=== PATIENT | female | born 1980 | race Caucasian/White ===

== ENCOUNTER → 2018-04-03 01:37 | Outpatient (CLI) | payer SELFPAY ==
--- NOTE | 2018-04-03 12:39 | DI.REPORT_ITS ---
SYMPTOMS/DIAGNOSIS: DATING, Z32.01 POSITIVE URINE TEST TRANSVAGINAL OB ULTRASOUND: Many abnormalities cannot be diagnosed. A normal exam does not exclude a congenital anomaly. Radiology No. [id number] LMP: 02/06/18 Exam Date: 04/03/18 [facility] wks days on EDC ([facility]) Confirmed: HISTORY: ---- PREDICTED GESTATIONAL AGE NUMBER 8 weeks with a range of 7 weeks to 9 weeks. 1 Determined by___1STUS__X_LMP___HISTORY PLACENTA PRESENTATION Grade Cephalic___ Anterior___Posterior___ Breech____ Right Left Transverse(head right___ Fundal___Low-lying___Previa___ Transverse(head left___ Varying BIOMETRY AMNIOTIC FLUID BPD: mm weeks Normal HC: mm weeks Oligo Polyhydramnios AC: mm weeks FL: mm weeks AMNIOTIC FLUID INDEX >26 WK CRL: mm weeks Cisterna Magna: mm CI: RUQ: LUQ Cerebellum: cm EFW: grams Percentile RLQ: LLQ Total: cms Composite AGE= wks EDC by US BIOPHYSICAL PROFILE ANATOMY IDENTIFIED SCORE 0/2 Heart: 4-Chamber___Rate:BPM 163 LVOT: RVOT: Amniotic Fluid(>2cms)____ Stomach: Kidneys: Respirations (>30 secs) Bladder: Post. Fossa: Body Flex/Extension 3 vessel cord: Ventricles: cord insertion: Lips:____ Extremity Flex/Extension spinal morphology: Nose: Total Score= Palate: NS=not seen COMMENTS: A viable intrauterine garcia is demonstrated. The yolk sac is identified. There is a question regarding a tiny subchorionic hemorrhage. The right ovary is normal. The left ovary was not seen. These findings are duly recorded on the obstetrical ultrasound worksheet.
== END ==
PROVIDERS: Visit Provider Nurse Practitioner Women's Health
DX: Z32.01 Encounter for pregnancy test, result positive (principal); Z34.81 Encounter for supervision of other normal pregnancy, first trimester
CPT/HCPCS: 76817

== ENCOUNTER 2018-04-08 11:32 | Outpatient (CLI) | payer MEDICAID, SELFPAY ==
[2018-04-08 12:40] LABS: Abs Immature Grans 0.03 k/cumm (0.0-0.09); Absolute Basophil Count 0.03 k/cumm (0.0-0.2); Absolute Lymphocyte Count 2.93 k/cumm (1.2-3.4); Absolute Monocyte Count 0.97 k/cumm (0.11-0.7); Basophils % 0.2; Eosinophils % 1.5; HCT 40.5 % (36.0-46.0); HGB 13.9 g/dL (12.0-15.5); Immature Grans % 0.2; Lymphocytes % 22.4; Mean Corp. HGB Concentration 34.3 g/dL (32.0-36.0); Mean Corpuscular Hemoglobin 31.4 pg (27.0-33.0); Mean Corpuscular Volume 91.6 fL (80-95); Mean Platelet Volume 10.1 fL (8.0-11.0); Monocytes % 7.4; Neutrophils % 68.3; Platelet Count 313 x1000/uL (130-400); RBC 4.42 m/cumm (4.00-5.20); RBC Distribution Width 12.3 % (11.7-14.6); White Blood Cell Count 13.09 k/cumm (4.4-10.8)
[2018-04-08 12:50] LABS: Absolute Neutrophil Count 8.94 k/cumm (1.2-6.7)
[2018-04-08 13:25] LABS: TSH (W/Ref FT4) 0.91 uIU/mL (0.358-3.74)
[2018-04-09 10:26] LABS: HIV-1/2 Ag & Ab Screen Negative (NEGAT)
[2018-04-09 10:34] LABS: Hepatitis B Surface Ag Negative (NEGAT); Hepatitis C Ab w Rflx HCV PCR Negative (NEGAT)
[2018-04-09 12:26] LABS: Rubella IgG Ab (UVM) Positive; Syphilis Serology (RPR) Negative (Negative)
== END 2018-04-08 11:52 ==
PROVIDERS: Visit Provider Advanced Practice Midwife
DX: Z34.91 Encounter for supervision of normal pregnancy, unspecified, first trimester (principal)
CPT/HCPCS: 36415; 80055; 86850; 86900; 86901; 84443

== ENCOUNTER 2018-04-08 14:12 | Outpatient (REF) | payer MEDICAID, SELFPAY ==
[2018-04-08 16:42] LABS: *AMPHETAMINES SCREEN URINE Negative (Negative); *BARBITURATES SCREEN URINE Negative (Negative); *BENZODIAZEPINES SCREEN URINE Negative (Negative); Cannabinoids THC Negative (Negative); Cocaine Screen,Urine Negative (Negative); METHADONE URINE SCREEN Negative (Negative); OPIATES URINE SCREEN Negative (Negative)
[2018-04-08 16:48] LABS: Tricyclic Antidepressants Negative (Negative)
[2018-04-10 13:21] LABS: Chlamydia Result Negative; GC Result Negative; Specimen Description CERVICAL
[2018-04-12 10:25] LABS: Buprenorphine Negative; Norbuprenorphine Negative
== END 2018-04-08 14:32 ==
LOC: LBN 14:12
PROVIDERS: Visit Provider Advanced Practice Midwife
DX: Z34.91 Encounter for supervision of normal pregnancy, unspecified, first trimester (principal); Z11.3 Encounter for screening for infections with a predominantly sexual mode of transmission
CPT/HCPCS: 80307; 87491; 87591; 87086; 87480; 87510; 87660

== ENCOUNTER 2018-05-09 12:47 | Outpatient (REF) | payer MEDICAID, SELFPAY | END 2018-05-09 13:07 | LOC: LBN 12:47 | PROVIDERS: Visit Provider Advanced Practice Midwife | DX: Z34.91 Encounter for supervision of normal pregnancy, unspecified, first trimester (principal) | CPT/HCPCS: 87077; 87086; 87186 ==

== ENCOUNTER 2018-07-04 18:43 | Outpatient (REF) | payer MEDICAID, SELFPAY | END 2018-07-04 19:03 | LOC: LBN 18:43 | PROVIDERS: Visit Provider Nurse Practitioner | DX: Z34.92 Encounter for supervision of normal pregnancy, unspecified, second trimester (principal) | CPT/HCPCS: 87086 ==

== ENCOUNTER 2018-08-22 09:57 | Outpatient (CLI) | payer MEDICAID, SELFPAY ==
[2018-08-22 10:20] LABS: HCT 37.6 % (36.0-46.0); HGB 12.7 g/dL (12.0-15.5); Mean Corp. HGB Concentration 33.8 g/dL (32.0-36.0); Mean Corpuscular Hemoglobin 31.8 pg (27.0-33.0); Mean Platelet Volume 9.2 fL (8.0-11.0); Platelet Count 268 x1000/uL (130-400); RBC Distribution Width 12.9 % (11.7-14.6); White Blood Cell Count 11.55 k/cumm (4.4-10.8)
[2018-08-22 10:43] LABS: Glucose,1 Hr (Glucola) 67 mg/dL (80-140)
== END 2018-08-22 10:17 ==
PROVIDERS: Visit Provider Advanced Practice Midwife
DX: Z34.93 Encounter for supervision of normal pregnancy, unspecified, third trimester (principal)
CPT/HCPCS: 36415; 82950; 85027

== ENCOUNTER 2018-10-13 14:18 | Outpatient (REF) | payer MEDICAID, SELFPAY | END 2018-10-13 14:38 | LOC: LBN 14:18 | PROVIDERS: Visit Provider Obstetrics & Gynecology | DX: Z34.93 Encounter for supervision of normal pregnancy, unspecified, third trimester (principal); Z36.85 Encounter for antenatal screening for Streptococcus B | CPT/HCPCS: 87081 ==

== ENCOUNTER 2018-10-21 01:52 | Inpatient (IN) | payer MEDICAID, SELFPAY ==
[2018-10-21 03:59] LABS: ROM Plus Positive
[2018-10-21 04:30] LABS: HGB 13.2 g/dL (12.0-15.5); Mean Corp. HGB Concentration 34.7 g/dL (32.0-36.0); Mean Corpuscular Hemoglobin 31.8 pg (27.0-33.0); Mean Corpuscular Volume 91.6 fL (80-95); Mean Platelet Volume 9.7 fL (8.0-11.0); Platelet Count 249 x1000/uL (130-400); RBC 4.15 m/cumm (4.00-5.20); White Blood Cell Count 14.21 k/cumm (4.4-10.8)
--- NOTE | 2018-10-21 04:40 | HPE_ITS ---
Assessment and Plan (1) History of section, low transverse: Current visit: Yes Status: Acute Plan to proceed with repeat section at 36 weeks. The patient has been counseled on the risks related to surgery including hemorrhage, infection and injury to other organs such as bowel and bladder. We discussed the risks related to prematurity of the and in particular that of the potential need for respiratory support. We discussed the intended irreversibility of tubal sterilization. All questions were answered to the patient's satisfaction and consent was obtained. (2) premature rupture of membranes (PPROM) with onset of labor within 24 hours of rupture in third trimester, antepartum: Current visit: Yes Status: Acute (3) Request for sterilization: Current visit: Yes Status: Acute History of Present Illness Chief Complaint: PPROM 36.5 weeks. Narrative: 38year old @ 36.5 weeks presents with SROM and early labor. Her obstetrical history is significant for two prior sections and she declines a trial of labor. She did have preeclampsia in a prior . Her obstetrical course this has otherwise been uncomplicated. In addition the patient wishes to undergo permanent sterilization as she desires no further childbearing. PFSH Medical History Elderly multigravida in first trimester (Acute) Asthma (Chronic) Frequent UTI (Chronic) Osteopenia (Chronic) Surgical History Augmentation mammoplasty (Resolved) section (Resolved 07/18/07) section (Resolved 04/07/09) Reduction mammoplasty (Resolved) Family History Grandfather Heart disease Myocardial infarction Grandfather Heart disease Myocardial infarction Stroke Social History Smoking/Tobacco Use Status: Never Drug use: Never Substance use type: does not use Do you feel safe in your relationship?: Yes History History 3 Para 2 Hx # Term Pregnancies 2 Multiple births 1 Hx # Pregnancies 0 Ectopic pregnancies 0 AB induced 0 Hx Number of Living Children 3 AB spontaneous 0 Past Pregnancies Del. Date GA/Weeks # Outcome Route Wgt Sex Labor Lgth Anesthesia Location Prov Complic 07/18/07 38 No Successful 6 lb 1 oz Male 26 hrs iol for p/e on mgso4 after 26 hrs w/o sig. progress therefore did 1` [facility] 04/07/09 37 Yes Successful 5 lb 10 oz Female cuong c/s [facility] 04/07/09 37 Yes Successful 4 lb 15 oz Female repeat c/s [facility] Delivery Date: 04/07/09 On 08/08/18 @ 10:57 NEDA WALDRON 2nd twin Delivery Date: 04/07/09 On 08/08/18 @ 10:55 NEDA WALDRON twin gestation w/o complications Delivery Date: 07/18/07 On 08/08/18 @ 10:53 NEDA WALDRON uncomplicated 1` c/s. Meds Home Medications Medication Instructions Recorded Confirmed Type 1 tab PO DAILY 04/08/18 10/20/18 History vitamin,calcium,lzqfyqrw-xops-veegk acid tablet aspirin 81 mg tablet,delayed 81 mg PO DAILY 05/09/18 10/20/18 History release famotidine 20 mg tablet 20 mg PO BID #60 tab 09/18/18 10/20/18 Rx Allergies Allergy/AdvReac Type Severity Reaction Status Date / Time shellfish derived Allergy Hives Verified 10/20/18 11:12 Exam Resp Effort & Inspection: normal respiratory effort Auscultation: clear to auscultation bilaterally Cardio Rate: regular rate Rhythm: regular rhythm Results Labs : 10/21/18 04:22 Laboratory Results - last 24 hr 10/21/18 10/21/18 03:38 04:22 WBC 14.21 H RBC 4.15 Hgb 13.2 Hct 38.0 MCV 91.6 MCH 31.8 MCHC 34.7 RDW 13.0 Plt Count 249 MPV 9.7 Membranes Rupture Positive
[2018-10-21] MEDS: Sodium Citrate 30 ML CUP PO (04:57)
[2018-10-21] MEDS: Lactated Ringers 1,000 ML 150 ML IV ×2 (05:00→06:20)
[2018-10-21] MEDS: AZITHROMYCIN 500 MG in Normal Saline 250 ML 250 MG IVPB (05:06)
--- NOTE | 2018-10-21 06:33 | PLAC_PTH ---
PATIENT: NOMI KELLEY LOC: OBS U#:[id number] AGE/SX: 38/F ROOM: OBS.301 RE10/21/[address]: Aaron Ro MD : 1980 BED: A DIS: 10/24/2018 SPEC #: [id number] RECD: 10/21/18 12:51 STATUS: LILA RELynn #: [id number] ALMA: 10/21/18 06:[address]: Aaron Ro DEPT: Surgical Specimen RECD BY: Ivette Keller ENTERED: 10/21/18 12:54 SP TYPE: PLAC OTHR DR: None Tissues: 1 - FALLOPIAN TUBE (STERILIZATION) 2 - FALLOPIAN TUBE (STERILIZATION) 3 - PLACENTA (3RD TRIMESTER) Procedures: GROSS AND MICRO LEVEL 2 GROSS AND MICRO LEVEL 5 Comments: [id number]
[2018-10-21] MEDS: Ketorolac 30 MG/ML VIAL IVP ×2 (14:16→19:57)
[2018-10-21] MEDS: Normal Saline Flush 10 ML SYR IVP (19:57)
[2018-10-22] MEDS: Ketorolac 30 MG/ML VIAL IVP ×2 (02:02→08:30)
[2018-10-22 07:08] LABS: HCT 33.6 % (36.0-46.0); HGB 10.9 g/dL (12.0-15.5); Mean Corp. HGB Concentration 32.4 g/dL (32.0-36.0); Mean Corpuscular Hemoglobin 30.4 pg (27.0-33.0); Mean Corpuscular Volume 93.9 fL (80-95); Mean Platelet Volume 9.5 fL (8.0-11.0); Platelet Count 247 x1000/uL (130-400); RBC 3.58 m/cumm (4.00-5.20); RBC Distribution Width 13.3 % (11.7-14.6); White Blood Cell Count 14.08 k/cumm (4.4-10.8)
--- NOTE | 2018-10-22 12:48 | W.PM.OP ---
Date of service: 10/21/18 Time of Service: 08:00 Operative Note DATE OF PROCEDURE: 10/21/18 PRE-OP DIAGNOSIS: 36.5 weeks. PPROM. Prior section. Sterilizatoin POST-OP DIAGNOSIS: same PROCEDURE: 1. Repeat low transverse section 2. Bilateral salpingectomy for sterilization SURGEON: Aaron Ro ANESTHESIA: spinal ESTIMATED BLOOD LOSS: 600 PATHOLOGY: other (Placenta) COMPLICATIONS: None Patient's condition: stable Indications: Prior section PPROM at 36.5 weeks Multiparity and desire for permanent sterilization Findings: 1. Significant adhesions involving bladder to uterus and anterior abdominal wall Procedure Description: The patient was taken to the operating room and after adequate spinal anesthesia the patient was placed in supine position with a left lateral tilt. The patient was prepped and draped in the usual sterile fashion. A david catheter had been placed in the bladder draining clear urine. A Pfannesstiel incision was made through the old scar and sharp dissection was taken down to the fascia. The fascia was incised with the scalpel and the incision extended laterally in either direction with Duggan scissors. There was dense adhesion of the rectus to the fascia and this was taken down sharply. The rectus were divided in the midline with sharp dissection and the peritoneum entered with Metzenbaum scissors. The bladder was firmly adhered high on the peritoneum and meticulous dissection was required to dissect the bladder free. Along the uterus, the bladder was also adhere high on the fundus and significant dissection was required to reflect the bladder from the lower uterine segment. The lower uterine segment was incised in the midline and the incision was carried laterally and superiorly with bandage scissors. The infant was found in cephalic presentation and delivered with a forceps assist. The mouth were suctioned, the cord clamped and cut, and the was handed off to the awaiting agency owner. The placenta was manually extracted. The uterus was cleared of all clots and debris. The hysterotomy was closed with a running locked stitch of #1 chromic. A second imbricating layer of #1 chromic completed the repair and achieved hemostasis. Attention was turned to the right fallopian tube which was normal in appearance. With use of the ligasure device, dissection was carried accross the mesosalpinx to the proximal tube which was transected. A similar procedure was carried out on the opposite side. Excellent hemostais was noted and fallopians tubes were submitted to pathology. The uterus was returned to the abdomen. The rectus and peritoneum were repaired en bloc with interrupted sutures of #1 chromic. The fascia was closed with a running stitch of 0 Vicryl. The subcutaneous tissues were closed with interrupted sutures of 3-0 vicryl and the skin was closed with a running stitch of 4-0 monocryl. Dermabond was applied. The procedure was concluded at this point. Sponge, lap and needle counts were correct at the conclusion of the procedure. The patient was transferred to PACU in stable condition.
--- NOTE | 2018-10-22 13:00 | ROE_ITS ---
Date of service: 10/21/18 Time of Service: 08:00 Operative Note DATE OF PROCEDURE: 10/21/18 PRE-OP DIAGNOSIS: 36.5 weeks. PPROM. Prior section. Sterilizatoin POST-OP DIAGNOSIS: same PROCEDURE: 1. Repeat low transverse section 2. Bilateral salpingectomy for sterilization SURGEON: Aaron Ro ANESTHESIA: spinal ESTIMATED BLOOD LOSS: 600 PATHOLOGY: other (Placenta) COMPLICATIONS: None Patient's condition: stable Indications: Prior section PPROM at 36.5 weeks Multiparity and desire for permanent sterilization Findings: 1. Significant adhesions involving bladder to uterus and anterior abdominal wall Procedure Description: The patient was taken to the operating room and after adequate spinal anesthesia the patient was placed in supine position with a left lateral tilt. The patient was prepped and draped in the usual sterile fashion. A david catheter had been placed in the bladder draining clear urine. A Pfannesstiel incision was made through the old scar and sharp dissection was taken down to the fascia. The fascia was incised with the scalpel and the incision extended laterally in either direction with Duggan scissors. There was dense adhesion of the rectus to the fascia and this was taken down sharply. The rectus were divided in the midline with sharp dissection and the peritoneum ent ered with Metzenbaum scissors. The bladder was firmly adhered high on the peritoneum and meticulous dissection was required to dissect the bladder free. Along the uterus, the bladder was also adhere high on the fundus and significant dissection was required to reflect the bladder from the lower uterine segment. The lower uterine segment was incised in the midline and the incision was carried laterally and superiorly with bandage scissors. The was found in cephalic presentation and delivered with a forceps assist. The mouth were suctioned, the cord clamped and cut, and the was handed off to the awaiting internal security manager. The placenta was manually extracted. The uterus was cleared of all clots and debris. The hysterotomy was closed with a running locked stitch of #1 chromic. A second imbricating layer of #1 chromic completed the repair and achieved hemostasis. Attention was turned to the right fallopian tube which was normal in appearance. With use of the ligasure device, dissection was carried accross the mesosalpinx to the proximal tube which was transected. A similar procedure was carried out on the opposite side. Excellent hemostais was noted and fallopians tubes were submitted to pathology. The uterus was returned to the abdomen. The rectus and peritoneum were repaired en bloc with interrupted sutures of #1 chromic. The fascia was closed with a running stitch of 0 Vicryl. The subcutaneous tissues were closed with interrupted sutures of 3-0 vicryl and the skin was closed with a running stitch of 4-0 monocryl. Dermabond was applied. The procedure was concluded at this point. Sponge, lap and needle counts were correct at the conclusion of the procedure. The patient was transferred to PACU in stable condition.
--- NOTE | 2018-10-22 13:05 | W.PM.PROGNOT ---
Date of Service Date of service: 10/22/18 Time of Service: 15:28 Assessment and Plan (1) S/P section: Current visit: Yes Status: Acute POD 1 s/p repeat section and bilateral salpingectomy for sterilization. Patient may shower today. Encourage ambulation. Continue routine post op care. Subjective Interval history since last seen: Doing well today. Pain well controlled Minimal lochia. Ambulatory. Tolerating regular diet. Objective Objective Clinical Data: Abnormal lab results 10/22/18 Range/Units 06:55 WBC 14.08 H (4.4-10.8) k/cumm RBC 3.58 L (4.00-5.20) m/cumm Hgb 10.9 L D (12.0-15.5) g/dL Hct 33.6 L (36.0-46.0) % Vital Signs Pain Level 2 10/21/18 19:57 Intake & Output 10/21/18 10/22/18 10/22/18 23:59 11:59 23:59 Intake Total 967.5 / 3317.5 Balance 967.5 / 2417.5 Intake: IV 967.5 / 3317.5 Laboratory Results WBC 14.08 k/cumm (4.4-10.8) H 10/22/18 06:55 RBC 3.58 m/cumm (4.00-5.20) L 10/22/18 06:55 Hgb 10.9 g/dL (12.0-15.5) L D 10/22/18 06:55 Hct 33.6 % (36.0-46.0) L 10/22/18 06:55 MCV 93.9 fL (80-95) 10/22/18 06:55 MCH 30.4 pg (27.0-33.0) 10/22/18 06:55 MCHC 32.4 g/dL (32.0-36.0) 10/22/18 06:55 RDW 13.3 % (11.7-14.6) 10/22/18 06:55 Plt Count 247 x1000/uL (130-400) 10/22/18 06:55 MPV 9.5 fL (8.0-11.0) 10/22/18 06:55 Membranes Rupture Positive 10/21/18 03:38 Patient ABO/Rh O Positive 10/21/18 04:22 Antibody Screen Negative 10/21/18 04:22
[2018-10-22] MEDS: Docusate Sodium 100 MG CAP PO ×2 (15:27→20:49)
[2018-10-22] MEDS: Acetaminophen 325 MG TAB 650 MG PO ×2 (15:28→20:50)
[2018-10-22] MEDS: Ibuprofen 600 MG TAB PO ×2 (15:28→20:49)
[2018-10-23] MEDS: Ibuprofen 600 MG TAB PO ×4 (03:32→21:06)
[2018-10-23] MEDS: Acetaminophen 325 MG TAB 650 MG PO ×4 (03:32→21:07)
[2018-10-23] MEDS: Docusate Sodium 100 MG CAP PO ×2 (15:41→21:06)
[2018-10-24] MEDS: Ibuprofen 600 MG TAB PO (03:09)
[2018-10-24] MEDS: Acetaminophen 325 MG TAB 650 MG PO (03:09)
--- NOTE | 2018-10-24 07:56 | W.PM.DS.N ---
Date of service: 10/24/18 Time of Service: 07:56 DS: Diagnosis Discharge Diagnosis (1) S/P section: Status: Acute (2) Request for sterilization: Status: Acute Discharge Plan Disposition Patient Disposition: HOME Condition: Fair Discharge Details Reason For Visit: LABOR. SROM. Admit Date/Time: 10/21/18 03:07 Admit Provider: Aaron Ro Attending Provider: Aaron Ro Primary Care Provider: None,None Hospital Course Hospital Course: 38year old @ 36.5 weeks presents with SROM and early labor. Her obstetrical history is significant for two prior sections and she declines a trial of labor. She did have preeclampsia in a prior . Her obstetrical course this has otherwise been uncomplicated. In addition the patient wishes to undergo permanent sterilization as she desires no further childbearing. Home Meds and New Rx's Prescriptions: No Action aspirin [Adult Aspirin Regimen] 81 mg tablet,delayed release (DR/EC) 81 mg PO DAILY RF: 0 famotidine [Acid Hostage Negotiator (famotidine)] 20 mg tablet 20 mg PO BID Qty: 60 RF: 2 Vitamin tablet 1 tab PO DAILY RF: 0 Discharge Instructions Stand Alone Forms: BC Discharge Instruc Activity:: Activity as Tolerated Equipment/Supplies:: No Equipment Needed Diet:: As Tolerated Discharge Orders Discharge Orders: Discharge Order (Routine); Ordered 10/24/18 Ordered By: Betsey Marrero Exam Narrative Exam Narrative: He will controlled with nonsteroidal anti-inflammatories plan is to discharge to home using NSAIDs in follow-up in approximately 1-[address] Ro for a postop wound check. Const General: no acute distress Nutritional Appearance: overweight Orientation: alert and oriented x3 Chest Chest: normal inspection of the chest Breast inspection: normal inspection of the breasts Resp Effort & Inspection: normal respiratory effort Auscultation: clear to auscultation bilaterally Cardio Palpation: normal PMI Rhythm: regular rhythm Heart Sounds: S1 normal and S2 normal Skin General skin exam: no rashes or lesions noted Extrem General: normal to inspection, full ROM, normal capillary refill and edema Laterality: bilateral (Pretibial edema bilateral lower extremity pulses present) DS: Data Vitals/I&O Vitals and I&O: Vital Signs Pain Level 3 10/24/18 03:09 PFSH Medical History Elderly multigravida in first trimester (Acute) Asthma (Chronic) Frequent UTI (Chronic) Osteopenia (Chronic) Surgical History Augmentation mammoplasty (Resolved) section (Resolved 07/18/07) section (Resolved 04/07/09) Reduction mammoplasty (Resolved) Family History Grandfather Heart disease Myocardial infarction Grandfather Heart disease Myocardial infarction Stroke Social History Smoking/Tobacco Use Status: Never Drug use: Never Substance use type: does not use 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 Date GA/Weeks # Outcome Route Wgt Sex Labor Lgth Anesthesia Location Prov Complic 07/18/07 38 No Successful 6 lb 1 oz Male 26 hrs iol for p/e on mgso4 after 26 hrs w/o sig. progress therefore did 1` [facility] 04/07/09 37 Yes Successful 5 lb 10 oz Female cuong c/s [facility] 04/07/09 37 Yes Successful 4 lb 15 oz Female repeat c/s [facility] Delivery Date: 04/07/09 On 08/08/18 @ 10:57 NEDA WALDRON 2nd twin Delivery Date: 04/07/09 On 08/08/18 @ 10:55 NEDA WALDRON twin gestation w/o complications Delivery Date: 07/18/07 On 08/08/18 @ 10:53 NEDA WALDRON uncomplicated 1` c/s.
--- NOTE | 2018-10-24 08:03 | DSE_ITS ---
Date of service: 10/24/18 Time of Service: 07:56 DS: Diagnosis Discharge Diagnosis (1) S/P section: Status: Acute (2) Request for sterilization: Status: Acute Discharge Plan Disposition Patient Disposition: HOME Condition: Fair Discharge Details Reason For Visit: LABOR. SROM. Admit Date/Time: 10/21/18 03:07 Admit Provider: Aaron Ro Attending Provider: Aaron Ro Primary Care Provider: None,None Hospital Course Hospital Course: 38year old @ 36.5 weeks presents with SROM and early labor. Her obstetrical history is significant for two prior sections and she declines a trial of labor. She did have preeclampsia in a prior . Her obstetrical course this has otherwise been uncomplicated. In addition the patient wishes to undergo permanent sterilization as she desires no further childbearing. Home Meds and New Rx's Prescriptions: No Action aspirin [Adult Aspirin Regimen] 81 mg tablet,delayed release (DR/EC) 81 mg PO DAILY RF: 0 famotidine [Acid [place] (famotidine)] 20 mg tablet 20 mg PO BID Qty: 60 RF: 2 Vitamin tablet 1 tab PO DAILY RF: 0 Discharge Instructions Stand Alone Forms: BC Discharge Instruc Activity:: Activity as Tolerated Equipment/Supplies:: No Equipment Needed Diet:: As Tolerated Discharge Orders Discharge Orders: Discharge Order (Routine); Ordered 10/24/18 Ordered By: Betsey Marrero Exam Narrative Exam Narrative: He will controlled with nonsteroidal anti-inflammatories plan is to discharge to home using NSAIDs in follow-up in approximately 1-[address] Ro for a postop wound check. Const General: no acute distress Nutritional Appearance: overweight Orientation: alert and oriented x3 Chest Chest: normal inspection of the chest Breast inspection: normal inspection of the breasts Resp Effort & Inspection: normal respiratory effort Auscultation: clear to auscultation bilaterally Cardio Palpation: normal PMI Rhythm: regular rhythm Heart Sounds: S1 normal and S2 normal Skin General skin exam: no rashes or lesions noted Extrem General: normal to inspection, full ROM, normal capillary refill and edema Laterality: bilateral (Pretibial edema bilateral lower extremity pulses present) DS: Data Vitals/I&O Vitals and I&O: Vital Signs Pain Level 3 10/24/18 03:09 PFSH Medical History Elderly multigravida in first trimester (Acute) Asthma (Chronic) Frequent UTI (Chronic) Osteopenia (Chronic) Surgical History Augmentation mammoplasty (Resolved) section (Resolved 07/18/07) section (Resolved 04/07/09) Reduction mammoplasty (Resolved) Family History Grandfather Heart disease Myocardial infarction Grandfather Heart disease Myocardial infarction Stroke Social History Smoking/Tobacco Use Status: Never Drug use: Never Substance use type: does not use 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 Date GA/Weeks # Outcome Route Wgt Sex Labor Lgth Anesthesia Location Prov Complic 07/18/07 38 No Successful 6 lb 1 oz Male 26 hrs iol for p/e on mgso4 after 26 hrs w/o sig. progress therefore did 1` [facility] 04/07/09 37 Yes Successful 5 lb 10 oz Female cuong c/s [facility] 04/07/09 37 Yes Successful 4 lb 15 oz Female repeat c/s [facility] Delivery Date: 04/07/09 On 08/08/18 @ 10:57 NEDA WALDRON 2nd twin Delivery Date: 04/07/09 On 08/08/18 @ 10:55 NEDA WALDRON twin gestation w/o complications Delivery Date: 07/18/07 On 08/08/18 @ 10:53 NEDA WALDRON uncomplicated 1` c/s.
[2018-10-24] MEDS: Docusate Sodium 100 MG CAP PO (09:11)
== END 2018-10-24 14:00 | disposition home or self-care (01) | DRG 785 ==
PROVIDERS: Admitting Provider Obstetrics & Gynecology; Visit Provider Obstetrics & Gynecology
PROC: 10D00Z1 Extraction of Products of Conception, Low, Open Approach (ICD-10-PCS; CPT 59514; principal; 2018-10-21 05:00)
DX: O34.211 Maternal care for low transverse scar from previous cesarean delivery (principal); Z30.2 Encounter for sterilization; Z37.0 Single live birth; Z3A.36 36 weeks gestation of pregnancy
CPT/HCPCS: 59514; 58611; 36415; 84112; 85027; 86850; 86900; 86901; 88305; 99223; 99233; 99238; 88302; 88307; J0456; J1100; J1200; J1885; J2405; J2590; J3010; J3490

== ENCOUNTER 2018-12-02 12:02 | Outpatient (REF) | payer MEDICAID, SELFPAY ==
--- NOTE | 2018-12-02 11:40 | PAPFT_PTH ---
PATIENT: NOMI KELLEY LOC: TRIP U#:[id number] AGE/SX: 38/F ROOM: RE12/02/[address]: Betsey Marrero : 1980 BED: DIS: 12/02/2018 SPEC #: [id number] RECD: 12/02/18 13:06 STATUS: LILA RELynn #: [id number] AL[place]: 12/02/18 11:[address]: Betsey Marrero DEPT: [facility] Cytology RECD BY: Ivette Keller ENTERED: 12/02/18 13:06 SP TYPE: PAPFT JANNETTE DR: None Tissues: 1 - CX/ENDOCX FOR PAP SMEARS Procedures: PAP THIN PREP/UVM Screening HPV DNA PROBE Comments: [id number]
== END 2018-12-02 12:22 ==
LOC: LBN 12:02
PROVIDERS: Visit Provider Obstetrics & Gynecology Gynecology
DX: Z12.4 Encounter for screening for malignant neoplasm of cervix (principal); Z11.51 Encounter for screening for human papillomavirus (HPV)
CPT/HCPCS: 88142; 87624

== ENCOUNTER 2019-01-04 11:23 | Observation (INO) | payer MEDICAID, SELFPAY ==
[2019-01-04] VITALS (32 sets, daily range): BP systolic 99–129; BP diastolic 53–84; PULSE 68–108; RESP 16–25; TEMP 36.6–37.4; O2SAT 71–99
[2019-01-04 11:45] LABS: Bilirubin Small (Negative); Blood Trace-intact (Negative); Clarity Clear; Glucose Negative (Negative); Ketones 15 mg/dL (Negative); Leukocyte Esterase Negative (Negative); Nitrite Negative (Negative); Specific Gravity 1.025 (1.005-1.025)
[2019-01-04 11:57] LABS: Bacteria Few HPF (Negative); C & S Indicated? No; Casts Negative LPF (Negative); Crystals Negative HPF (Negative); Epithelial Cells Many HPF (Negative); Mucus Heavy (Negative); WBC Negative HPF (0-5)
[2019-01-04] MEDS: Normal Saline 1,000 ML 1000 ML IV (12:00)
--- NOTE | 2019-01-04 12:10 | DI.CT_ITS ---
SYMPTOM/DIAGNOSIS: ABD PAIN, RLQ ABDOMEN AND PELVIC CT: CT examination of the abdomen and pelvis was performed with intravenous infusion of 100 cc's of Omnipaque 350. Images obtained through the lung bases are unremarkable. The liver and spleen are unremarkable in appearance with an incidental apparent tiny right hepatic lobe cyst. Gallbladder and bile ducts are CT normal as is the pancreas Abdominal aorta is of normal diameter and no major vascular abnormality is seen. Fat containing supraumbilical ventral hernia noted measuring up to about 3-4 cm. in diameter. Adrenals and kidneys are unremarkable. No evidence of urinary tract calcification or obstruction. There is a small quantity of free pelvic fluid. There is an apparent blind ending, fluid filled, thick walled viscus in the right lower quadrant consistent with inflamed appendix. No evidence of obstruction. No evidence of perforation or abscess formation. CONCLUSION: Findings consistent with acute appendicitis. No gross evidence of perforation or abscess formation.
[2019-01-04 12:14] LABS: Abs Immature Grans 0.01 k/cumm (0.0-0.09); Absolute Basophil Count 0.01 k/cumm (0.0-0.2); Absolute Eosinophil Count 0.01 k/cumm (0.0-0.7); Absolute Monocyte Count 0.26 k/cumm (0.11-0.7); Absolute Neutrophil Count 2.89 k/cumm (1.2-6.7); Basophils % 0.3; Eosinophils % 0.3; HCT 39.2 % (36.0-46.0); HGB 12.9 g/dL (12.0-15.5); Immature Grans % 0.3; Lymphocytes % 13.6; Mean Corp. HGB Concentration 32.9 g/dL (32.0-36.0); Mean Corpuscular Hemoglobin 30.2 pg (27.0-33.0); Mean Corpuscular Volume 91.8 fL (80-95); Monocytes % 7.1; Neutrophils % 78.4; Platelet Count 209 x1000/uL (130-400); RBC 4.27 m/cumm (4.00-5.20); RBC Distribution Width 12.3 % (11.7-14.6); White Blood Cell Count 3.68 k/cumm (4.4-10.8)
[2019-01-04] MEDS: Ketorolac 30 MG/ML VIAL IVP ×2 (12:15→20:31)
[2019-01-04 12:25] LABS: ALT 51 U/L (12-78); AST 26 U/L (15-37); Albumin 3.8 g/dL (3.4-5.0); Alkaline Phosphatase 68 U/L (46-116); Anion Gap 10.9 mmol/L (3-11); BUN 9 mg/dL (7-18); Bilirubin, Total 0.6 mg/dL (0.2-1.0); CO2 25.1 mmol/L (21.0-32.0); CREATININE 0.89 mg/dL (0.55-1.02); Calcium 8.6 mg/dL (8.5-10.1); Chloride 105 mmol/L (98-107); Glucose 93 mg/dL (70-100); Lipase 74 U/L (73-393); Potassium 3.4 mmol/L (3.5-5.1); Sodium 141 mmol/L (136-145); Total Protein 7.2 g/dL (6.4-8.2)
[2019-01-04] MEDS: Omnipaque 350 MG/ML 100 ML BTL IV (12:50)
[2019-01-04] MEDS: Normal Saline 1,000 ML 125 ML IV ×2 (13:20→21:14)
[2019-01-04] MEDS: diphenhydrAMINE 50 MG/ML VIAL IVP (13:22)
[2019-01-04] MEDS: methylPREDNISolone SUCC 125 MG VIAL IVP (13:23)
--- NOTE | 2019-01-04 13:40 | NUR.NOTE ---
Nursing Note: Arrives from CT with hives and itching---Bp 121/76--pulse 84---resp 18---Sao2 96--Phyllis RAYMUNDO notified
--- NOTE | 2019-01-04 13:49 | DI.VRAD_ITS ---
Addendum created by Angel Anderson MD on 01/04/2019 1:52:22 PM EDT THIS REPORT CONTAINS FINDINGS THAT MAY BE CRITICAL TO PATIENT CARE. The findings were verbally communicated via telephone conference with BIJAL VALADEZ at 1:52 PM EDT on 01/04/2019. The findings were acknowledged and understood. Initial report created on 01/04/2019 1:49:26 PM EDT EXAM: CT Abdomen and Pelvis With Contrast EXAM DATE/TIME: 01/04/2019 12:53 PM CLINICAL HISTORY: 38 years old, female; Signs and symptoms; Other: Abd pain, rlq; Prior surgery; Surgery date: 6+ months; Surgery type: C-sextion x3 TECHNIQUE: Imaging protocol: Axial computed tomography images of the abdomen and pelvis with intravenous contrast. Coronal and sagittal reformatted images were created and reviewed. Radiation optimization: All CT scans at this facility use at least one of these dose optimization techniques: automated exposure control; mA and/or kV adjustment per patient size (includes targeted exams where dose is matched to clinical indication); or iterative reconstruction. Contrast material: OMNIPAQUE 350; Contrast volume: 100 ml; Contrast route: IV; COMPARISON: US TRANSVAGINAL OB ULTRASOUND 04/03/2018 3:00 PM FINDINGS: ABDOMEN: Liver: Normal. No mass. Gallbladder and bile ducts: Normal. No calcified stones. No ductal dilation. Pancreas: Normal. No ductal dilation. Spleen: Normal. No splenomegaly. Adrenals: Normal. No mass. Kidneys and ureters: Normal. No hydronephrosis. Stomach and bowel: Normal. No obstruction. No mucosal thickening. Appendix: Moderate appendicitis without definite abscess or rupture. PELVIS: Bladder: Unremarkable as visualized. Reproductive: Probable moderate appendicitis measuring up to 10 mm in diameter with thickened enhancing stevens which is situated between the cecum and superior fundus of the uterus. ABDOMEN and PELVIS: Intraperitoneal space: Small amount of nonspecific free fluid in the dependent portion of the pelvis. Possibly secondary to appendicitis versus adjacent ovarian cysts. 1.7 cm right ovarian cyst which is adjacent to the free fluid in the right dependent pelvis. Bones/joints: No acute fracture. No dislocation. Soft tissues: Bilateral breast implants. 2.4 cm midline anterior abdominal hernia containing fat, 4 cm superior to the umbilicus. Horizontal band of inflammation in the lower anterior abdominal wall over the pelvis consistent with history of previous C-sections. Vasculature: Normal. No abdominal aortic aneurysm. Lymph nodes: Normal. No enlarged lymph nodes. IMPRESSION: 1. Moderate appendicitis without definite abscess or rupture. 2. 2.4 cm midline anterior abdominal hernia containing fat, 4 cm superior to the umbilicus. 3. Horizontal band of inflammation in the lower anterior abdominal wall over the pelvis consistent with history of previous C-sections. 4. Small amount of nonspecific free fluid in the dependent portion of the pelvis. Possibly secondary to appendicitis versus adjacent ovarian cysts. 5. 1.7 cm right ovarian cyst which is adjacent to the free fluid in the right dependent pelvis. Dictated and Authenticated by: Angel Anderson MD. Ordering:UDAY Raymond MD
[2019-01-04] MEDS: cefTRIAXone 2 GM/50 ML BAG IVPB (14:16)
--- NOTE | 2019-01-04 14:58 | HPE_ITS ---
Date of service: 01/04/19 Time of Service: 14:58 Assessment and Plan (1) Acute appendicitis: Current visit: Yes Status: Acute received abx in ED CT reviewed. Will need to do cut down b/c of recent surgery risks: Informed consent is obtained for the procedural (explained in simple layman's terms that the pt. and/or family could understand) explaining risks vs benefits and alternatives to the procedure and consequences if we do not do the procedure. Risks include but are not limited to: bleeding, infections, pneumonia, blood clots/DVT/PE, anesthesia (aspiration, damage to teeth/airway/AK/CVA//prolonged mechanical ventilation/PTX/IV infections), damage to bowel, bladder, blood vessels, ureter s. Damage to solid organs requiring removal. Infertility. Leakage from anastomosis requiring colostomy/ Wound infections requiring further surgery. Scarring and disfigurement. Subsequent bowel obstructions from scar tissue. Possible open procedure if minimally invasive procedure is being attempted. will see how severe the appendix is and how difficult the surgery is- maybe able to go home later today otherwise in am History of Present Illness Consults Consult date: 01/04/19 Narrative: pt started feeling not right on Saturday night, and woke up Saturday not feeling well at all. Thought she had a touch of the flu. today she has localized RLQ pain and nausea. no fever/chills. No appetite no Diarrhea. no hx of GI issues/nothing like this in the past. She recent had a C section 10wks ago for pre-Eclampsia. no problems w/ anesthesia than. She had a CT today and hives from contrast and got 50mg benadryl IV so is sleepy. no recent travel. no one else at home is ill. pt denies hx of asthma- says she had an albuterol MDI for pneumonia- earlier this winter. no resp problems at this time.\No problems w/ aenthesia. Review of Systems Review of Systems All systems reviewed & are unremarkable except as noted in HPI and below Constitutional Reports as per HPI, Reports system reviewed and no additional complaints, except as docu, Denies anorexia, Denies chills, Denies difficulty sleeping, Denies fatigue, Denies headache(s), Denies lethargy, Denies malaise, Denies poor appetite, Denies weakness, Denies weight gain and Denies weight loss Eyes Reports as per HPI, Reports system reviewed and no additional complaints, except as docu and Denies change in vision ENT Reports system reviewed and no additional complaints, except as docu, Reports as per HPI, Denies change in voice, Denies dental pain, Denies dysphagia, Denies dizziness, Denies facial pain, Denies headache(s) and Denies odynophagia Cardiovascular Reports as per HPI, Reports system reviewed and no additional complaints, except as docu, Denies chest pain, Denies chest pain with activity, Denies syncope, Denies leg edema and Denies dyspnea Respiratory Reports as per HPI, Reports system reviewed and no additional complaints, except as docu, Denies chest congestion, Denies cough, Denies pain with cough and Denies dyspnea Comments: denies hx of asthma Gastrointestinal Reports as per HPI, Reports system reviewed and no additional complaints, except as docu, Denies abdominal pain, Denies bloating, Denies change in bowel habits, Denies change in stool character, Denies constipation, Denies cramping, Denies dysphagia, Reports early satiety, Reports heartburn, Denies diarrhea, Reports nausea, Denies odynophagia and Denies vomiting Comments: pain in RLQ C section scar is well healed. changes noted on CT Genitourinary Comments: denies dysuria Musculoskeletal Reports system reviewed and no additional complaints, except as docu, Reports as per HPI, Denies abnormal gait, Denies arthralgias and Denies muscle weakness Integumentary/Breasts Reports system reviewed and no additional complaints, except as docu, Reports as per HPI, Denies changing lesions, Denies new lesions and Denies jaundice Neurologic Reports system reviewed and no additional complaints, except as docu, Reports as per HPI, Denies abnormal speech, Denies abnormal gait, Denies dizziness, Denies syncope, Denies headache(s), Denies memory loss and Denies weakness Psychiatric Reports system reviewed and no additional complaints, except as docu, Reports as per HPI, Denies change in appetite and Denies memory loss Endocrine Denies fatigue, Denies polydipsia and Denies polyuria Hematologic/Lymphatic Reports system reviewed and no additional complaints, except as docu, Denies easy bleeding and Denies easy bruising Allergic/Immunologic Denies system reviewed and no additional complaints, except as docu, Reports as per HPI and Denies urticaria [facility] Medical History Acute appendicitis (Acute) GERD (gastroesophageal reflux disease) (Chronic) Elderly multigravida in first trimester (Acute) Asthma (Chronic) Frequent UTI (Chronic) Osteopenia (Chronic) Surgical History H/O bilateral salpingectomy (Acute) Augmentation mammoplasty (Resolved) section (Resolved 04/07/09) Reduction mammoplasty (Resolved) Family History Grandfather Heart disease Myocardial infarction Grandfather Heart disease Myocardial infarction Stroke Social History Smoking/Tobacco Use Status: Never Alcohol Intake: current Alcohol Intake frequency: holidays/special occasions only Drug use: Never Substance use type: does not use Household members: significant other, children and other Details: - Huseyin, 10/2018 S -Venkatesh. 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 Date GA/Weeks # Outcome Route Wgt Sex Labor Lgth Anesthesia Location Prov Complic 07/18/07 40 No Successful 2.75 kg Male 26 hrs iol for p/e on mgso4 after 26 hrs w/o sig. progress therefore did 1` formerly [facility] 04/07/09 39 Yes Successful 2.551 kg Female cuong c/s [facility] 04/07/09 39 Yes Successful 2.24 kg Female repeat c/s [facility] 10/21/18 No Successful 2.693 kg Male Aaron Ro Delivery Date: 10/21/18 No notes to display Delivery Date: 04/07/09 On 08/08/18 @ 10:57 NEDA WALDRON 2nd twin Delivery Date: 04/07/09 On 08/08/18 @ 10:55 NEDA WALDRON twin gestation w/o complications Delivery Date: 07/18/07 On 08/08/18 @ 10:53 NEDA WALDRON uncomplicated 1` c/s. Meds Home Medications Medication Instructions Recorded Confirmed Type famotidine 20 mg tablet 20 mg PO BID #60 tab 09/18/18 01/04/19 Rx multivitamin 1 cap PO DAILY 01/04/19 01/04/19 History naproxen sodium [Aleve] 440 mg PO BID PRN 01/04/19 01/04/19 History Allergies Allergy/AdvReac Type Severity Reaction Status Date / Time iohexol Allergy Intermediate Hives Unverified 01/04/19 13:42 shellfish derived Allergy Hives Verified 01/04/19 11:43 Results Labs : 01/04/19 12:00 01/04/19 12:00 Laboratory Results - last 24 hr 01/04/19 01/04/19 01/04/19 11:13 12:00 12:00 WBC 3.68 L RBC 4.27 Hgb 12.9 Hct 39.2 MCV 91.8 MCH 30.2 MCHC 32.9 RDW 12.3 Plt Count 209 MPV 10.0 Immature Gran % 0.3 Neutrophils % 78.4 Lymphocytes % 13.6 Monocytes % 7.1 Eosinophils % 0.3 Basophils % 0.3 Absolute Neutrophils 2.89 Absolute Lymphocytes 0.50 L Absolute Monocytes 0.26 Absolute Eosinophils 0.01 Absolute Basophils 0.01 Sodium 141 Potassium 3.4 L Chloride 105 Carbon Dioxide 25.1 Anion Gap 10.9 BUN 9 Creatinine 0.89 Estimated GFR/1.73 m2 >= 60.00 Glucose 93 Calcium 8.6 Total Bilirubin 0.6 AST 26 ALT 51 Alkaline Phosphatase 68 Total Protein 7.2 Albumin 3.8 Lipase 74 Urine Color Dark yellow Urine Clarity Clear Urine pH 6.0 Ur Specific [place] 1.025 Urine Protein 100 H Urine Ketones 15 H Urine Blood Trace-intact H Urine Nitrite Negative Urine Bilirubin Small H Urine Urobilinogen 1.0 H Ur Leukocyte Esterase Negative Urine RBC 10-20 H Urine WBC Negative Ur Epithelial Cells Many Urine Crystals Negative Urine Bacteria Few Urine Casts Negative Urine Mucus Heavy Ur Culture Indicated? No Urine Glucose Negative Last Vital Signs Temp 36.8 C 01/04/19 11:30 Pulse 81 01/04/19 14:01 Resp 18 01/04/19 13:15 BP 123/70 01/04/19 14:01 Pulse Ox 95 01/04/19 14:20
[2019-01-04] MEDS: metroNIDAZOLE 500 MG/100 ML BAG 100 MG IVPB (14:59)
--- NOTE | 2019-01-04 15:03 | W.ED.GENAD ---
Discharge Plan Disposition Condition: Improving Discharge Details Chief Complaint: Abd Prob Admit Date/Time: 01/04/19 17:22 Admit Provider: Shellie Escalante Attending Provider: Shellie Escalante Primary Care Provider: None,None ED Provider: Segundo Johnson Discharge Instructions Activity:: No lifting, pulling or pushing >20 lb x 2 weeks Equipment/Supplies:: No Equipment Needed Diet:: As Tolerated Discharge Orders Discharge Orders: Discharge Order (Routine); Ordered 01/05/19 Ordered By: Gregoria Barcenas Discharge Data Discharge Date/Time-TO BE ENTERED AT DEPARTURE: 01/04/19 15:37 Medical Decision Making Patient presenting the emergency department for chief complaint of abdominal pain. Patient states that this has been going on for last 3 days and is been focal to the right lower quadrant. Patient is noted over the last couple days some associated nausea and reduction of appetite. Physical exam shows tenderness to right lower quadrant at McBurney's point, otherwise normal active bowel sounds and unremarkable nondiagnostic exam. Concern for appendicitis so plan to perform radiological imaging and labs pending results patient given ketorolac and IV fluids. Review of labs is unremarkable nondiagnostic with no note of leukocytosis. Immediately after CT imaging with IV contrast patient developed diffuse hives. Patient reports no difficulty breathing, swelling of lips tongue or mouth pain patient given Benadryl, Solu-Medrol, and ranitidine. Hives resolved within approximately 15 to 20 minutes. No other acute signs of allergic reaction or anaphylaxis was noted. CT imaging shows evidence of acute appendicitis. Spoke with on-call surgeon Dr. Escalante who came and evaluated the patient. She did recommend Rocephin and Flagyl be given pending OR. Patient is in agreement with plan of care to be admitted to surgical services HPI General Mode of arrival: ambulatory. Date/Time Provider Initiated Documentation: 01/04/19 11:49. Limitations to Documentation: no limitations. Information obtained by: patient and RN notes reviewed. History of Present Illness 38 year old F presents to the emergency department with the chief complaint of Abdominal pain, described as mild, with intensity rated at 3. Quality is described as aching and dull, and is localized to the abdomen. Patient started experiencing this day(s) (3) and it has been constant. No relieving factors improve symptom(s), Related Data Home Medications Medication Instructions Recorded Confirmed famotidine 20 mg tablet 20 mg PO BID #60 tab 09/18/18 01/04/19 multivitamin 1 cap PO DAILY 01/04/19 01/04/19 acetaminophen [Mapap Extra 500 - 1,000 mg PO Q6H PRN PRN #30 01/05/19 Strength] tab naproxen sodium [Aleve] 440 mg PO TID #0 cap 01/05/19 01/04/19 Previous Rx's Medication Instructions Recorded famotidine 20 mg tablet 20 mg PO BID #60 tab 09/18/18 acetaminophen [Mapap Extra 500 - 1,000 mg PO Q6H PRN PRN #30 01/05/19 Strength] tab naproxen sodium [Aleve] 440 mg PO TID #0 cap 01/05/19 Allergies Allergy/AdvReac Type Severity Reaction Status Date / Time iohexol Allergy Intermediate Hives Unverified 01/04/19 13:42 shellfish derived Allergy Hives Verified 01/04/19 11:43 General Stated Complaint: Abd Prob ALPESH: 3 Review of Systems Constitutional Denies chills, Reports fever(s) and Reports poor appetite Cardiovascular Denies chest pain and Denies dyspnea Respiratory Denies cough and Denies dyspnea Gastrointestinal Reports as per HPI, Reports abdominal pain, Denies melena, Denies change in bowel habits, Denies constipation, Denies diarrhea, Reports nausea and Denies vomiting Genitourinary Denies hematuria and Denies difficulty voiding Integumentary/Breasts Denies rash [facility] Medical History Acute appendicitis (Acute) GERD (gastroesophageal reflux disease) (Chronic) Elderly multigravida in first trimester (Acute) Asthma (Chronic) Frequent UTI (Chronic) Osteopenia (Chronic) Surgical History S/P laparoscopic appendectomy (Acute ~01/04/19) H/O bilateral salpingectomy (Acute) Augmentation mammoplasty (Resolved) section (Resolved 04/07/09) Reduction mammoplasty (Resolved) Family History Grandfather Heart disease Myocardial infarction Grandfather Heart disease Myocardial infarction Stroke Social History Smoking/Tobacco Use Status: Never Alcohol Intake: current Alcohol Intake frequency: holidays/special occasions only Drug use: Never Substance use type: does not use Household members: significant other, children and other Details: BF - Huseyin, 10/2018 Kwesi -Venkatesh. 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 Date GA/Weeks # Outcome Route Wgt Sex Labor Lgth Anesthesia Location [facility] 07/18/07 40 No Successful 2.75 kg Male 26 hrs iol for p/e on mgso4 after 26 hrs w/o sig. progress therefore did 1` [facility] 04/07/09 39 Yes Successful 2.551 kg Female cuong c/s [facility] 04/07/09 39 Yes Successful 2.24 kg Female repeat c/s [facility] 10/21/18 No Successful 2.693 kg Male Aaron Ro Delivery Date: 10/21/18 No notes to display Delivery Date: 04/07/09 On 08/08/18 @ 10:57 NEDA WALDRON 2nd twin Delivery Date: 04/07/09 On 08/08/18 @ 10:55 NEDA WALDRON twin gestation w/o complications Delivery Date: 07/18/07 On 08/08/18 @ 10:53 NEDA WALDRON uncomplicated 1` c/s. Exam Const General: cooperative Orientation: alert, awake and oriented x3 Resp Effort & Inspection: normal respiratory effort and able to speak in complete sentences Auscultation: clear to auscultation bilaterally Cardio Rate: regular rate Rhythm: regular rhythm Heart Sounds: S1 normal and S2 normal GI Palpation: soft, no hepatosplenomegaly, not firm, guarding in the RLQ, no masses, no pulsatile masses, not rigid, no splenomegaly and tender in the RLQ, at McBurney's point and Rovsing's sign positive Auscultation: normal bowel sounds Back/Spine/Pelvis Back: no CVA tenderness Neuro General: alert, awake, oriented x3, gait normal and moves all extremities Course Vital Signs Temperature 36.8 C 01/04/19 11:30 Pulse 108 H 01/04/19 11:30 Respiratory Rate 18 01/04/19 11:30 Blood Pressure 129/82 01/04/19 11:30 Pulse Oximetry 98 01/04/19 11:30 Temperature 37.4 C 01/04/19 15:02 Temperature Source Temporal Artery Scan 01/04/19 15:02 Pulse 81 01/04/19 14:01 Respiratory Rate 18 01/04/19 13:15 Respiratory Effort 01/04/19 11:41 Blood Pressure 123/70 01/04/19 14:01 Blood Pressure Mean 81 01/04/19 14:01 Blood Pressure Position Standing 01/04/19 11:30 Pulse Oximetry 95 01/04/19 14:20 Oxygen Delivery Method Room Air 01/04/19 13:15 Oxygen Flow Rate 0 01/04/19 13:15 Pain Level 4 01/04/19 12:45 Lab/Test Results Lab/Test Results: Laboratory Tests Range/Units 01/04/19 01/04/19 01/04/19 11:13 12:00 12:00 WBC (4.4-10.8) k/cumm 3.68 L RBC (4.00-5.20) m/cumm 4.27 Hgb (12.0-15.5) g/dL 12.9 Hct (36.0-46.0) % 39.2 MCV (80-95) fL 91.8 MCH (27.0-33.0) pg 30.2 MCHC (32.0-36.0) g/dL 32.9 RDW (11.7-14.6) % 12.3 Plt Count (130-400) x1000/uL 209 MPV (8.0-11.0) fL 10.0 Immature Gran % 0.3 Neutrophils % 78.4 Lymphocytes % 13.6 Monocytes % 7.1 Eosinophils % 0.3 Basophils % 0.3 Absolute Neutrophils (1.2-6.7) k/cumm 2.89 Absolute Lymphocytes (1.2-3.4) k/cumm 0.50 L Absolute Monocytes (0.11-0.7) k/cumm 0.26 Absolute Eosinophils (0.0-0.7) k/cumm 0.01 Absolute Basophils (0.0-0.2) k/cumm 0.01 Sodium (136-145) mmol/L 141 Potassium (3.5-5.1) mmol/L 3.4 L Chloride (98-107) mmol/L 105 Carbon Dioxide (21.0-32.0) mmol/L 25.1 Anion Gap (3-11) mmol/L 10.9 BUN (7-18) mg/dL 9 Creatinine (0.55-1.02) mg/dL 0.89 Estimated GFR/1.73 m2 (mL/min/1.73m2) >= 60.00 Glucose (70-100) mg/dL 93 Calcium (8.5-10.1) mg/dL 8.6 Total Bilirubin (0.2-1.0) mg/dL 0.6 AST (15-37) U/L 26 ALT (12-78) U/L 51 Alkaline Phosphatase (46-116) U/L 68 Total Protein (6.4-8.2) g/dL 7.2 Albumin (3.4-5.0) g/dL 3.8 Lipase (73-393) U/L 74 Urine Color (Yellow) Dark yellow Urine Clarity Clear Urine pH (5-8) 6.0 Ur Specific [place] (1.005-1.025) 1.025 Urine Protein (Negative) mg/dL 100 H Urine Ketones (Negative) mg/dL 15 H Urine Blood (Negative) Trace-intact H Urine Nitrite (Negative) Negative Urine Bilirubin (Negative) Small H Urine Urobilinogen (Up TO 0.2) EU/dL 1.0 H Ur Leukocyte Esterase (Negative) Negative Urine RBC (0-2) 10-20 H Urine WBC (0-5) HPF Negative Ur Epithelial Cells (Negative) HPF Many Urine Crystals (Negative) HPF Negative Urine Bacteria (Negative) HPF Few Urine Casts (Negative) LPF Negative Urine Mucus (Negative) Heavy Ur Culture Indicated? No Urine Glucose (Negative) mg/dL Negative POC- Test(urine) Negative
[2019-01-04] MEDS: Lactated Ringers 1,000 ML 150 ML IV ×2 (16:15→17:19)
--- NOTE | 2019-01-04 16:49 | APP_PTH ---
PATIENT: NOMI KELLEY LOC: U#:[id number] AGE/SX: 38/F ROOM: 206 RE01/04/[address]: Shellie Escalante : 1980 BED: A DIS: 01/05/2019 SPEC #: [id number] RECD: 01/05/19 12:41 STATUS: LILA REQ #: [id number] ALMA: 01/04/19 16:[address]: Shellie Escalante DEPT: Surgical Specimen RECD BY: Ivette Keller ENTERED: 01/05/19 12:42 SP TYPE: Appendix OTHR DR: None Tissues: 1 - APPENDIX NOT INCIDENTAL Procedures: GROSS AND MICRO LEVEL 3 Comments: [id number]
--- NOTE | 2019-01-04 17:27 | W.PM.OP ---
Date of service: 01/04/19 Time of Service: 17:28 Operative Note DATE OF PROCEDURE: 01/04/19 PRE-OP DIAGNOSIS: acute appy POST-OP DIAGNOSIS: same PROCEDURE: INDICATIONS: The patient has signs and symptoms compatible with acute appendicitis and is brought to the OR for laparoscopic appendectomy, possible open procedure. Informed consent is obtained for the procedural (explained in simple layman's terms that the pt and/or family could understand) explaining risks vs benefits and alternatives to the procedure and consequences if we do not do the procedure. Risks include but are not limited to:bleeding,infections, pneumonia, blood clots/DVT/PE, anesthesia(aspiration, damage to teeth/airway/[place]/CVA//prolonged mechanical ventilation/PTX/IV infections), damage to bowel, bladder,blood vessels, ureters. Damage to solid organs requiring removal. Infertility. Leakage from anastomosis requiring colostomy. Wound infections requirng further surgery. Scarring and disfigurement. Subsequent bowel obstructions from scar tissue. Possible open procedure if minimaly invsive procedure is being attempted. Abscess and stump appendicitis as well as others. DESCRIPTION OF PROCEDURE: The patient was brought to the operating room suite and placed in supine position. Anesthesia was administered per the Department of Anesthesia. A Milligan catheter and OG tube are placed. The patient was prepped and draped in the usual sterile fashion using ChloraPrep scrub solution. Pause for the cause was done. 30 mL of 1% buffered was used for local anesthetization. A cut down is performed at the umbilicus due to her recent C secton. A Singh trocar is inserted adn sewn into place. The Camera is inserted through the port shows no damage to underlying structures. Bowel, liver and stomach that are visualized are normal in appearance. Pelvic organs are not visualized. The appendix is inflamed, he appendix is elevated and a rent dissected into the mesentery. The base of the appendix is healthy and will hold sherley. A Endo-JAYJAY stapler is placed across the base of the appendix and fired and 2nd stapler placed across the mesentery and fired. There are some adhesions in the pelvis from her previous C section. These are taken down w/ blunt dissection/cautery adn sharply as well w/ scissors. There is no purulent drainage in the pelvis. It is not adhered to any adjacent structures. A 12 mm port was then placed in the suprapubic position under direct visualization following creation of a local field block as well as a second 5 mm port in the LLQ. The appendix is elevated and a rent dissected into the mesentery. The base of the appendix is healthy and will hold sherley. A Endo-JAYJAY stapler is placed across the base of the appendix and fired and 2nd stapler placed across the mesentery and fired. The appendix is placed in a bag and brought out. There is no bleeding or enteric leakage from the staple lines. The pt does not require a drain. The abdomen was copiously irrigated with a liter of saline. All saline is evacuated. The scope and ports are removed. Pneumoperitoneum is evacuated. The fascia under the 12 mm port and under the umbilicus is closed w/ O vicryl in an interrupted fashion. is closed with 0 Vicryl. There was no bleeding from the port sites as when they removed and the pneumoperitoneum evacuated. The wounds were copiously irrigated and closed in 2 layers with 4-0 Monocryl. Sterile tape and sterile dressings are applied. The patient tolerated the procedure without complication, transferred to the recovery room in stable condition. Family was apprised of patient condition. The patient can be discharged home later today. THEATRE PROFESSOR: Sherley Coleman ANESTHESIA: FELIBERTO ESTIMATED BLOOD LOSS: 10 PATHOLOGY: other COMPLICATIONS: None Patient was transported to: PACU
--- NOTE | 2019-01-04 18:31 | W.PM.PROGNOT ---
Date of Service Date of service: 01/04/19 Time of Service: 18:31 Assessment and Plan (1) Acute appendicitis: Current visit: Yes Status: Acute (2) GERD (gastroesophageal reflux disease): Current visit: Yes Status: Chronic (3) S/P section: Current visit: No Status: Acute Subjective Interval history since last seen: Post Op Note Pt is seen after there recent lap appy. The case is reviewed with the patient; findings and the procedure/surgery were reviewed with the patient and family. The Patient's condition has been reviewed with the RN. Vitals have all been stable. Pain is controlled. @NAME@ is tolerating po's. The patient has been able to void since surgery- clear yellow urine in an adequate amount. Vital signs: Antibiotics:none DVT prophylaxis:lovenox GI prophylaxis:pepcid Constipation prophylaxis:none PHYSICAL EXAM GENERAL APPEARANCE: Alert, healthy appearance, oriented, in no acute distress SKIN: No rashes. no further problems from CT scan contrast HYDRATION: Well hydrated HEAD, EYES, EARS, NECK, AND THROAT: Head is normocephalic, pupils equal, round, reactive to light and accommodation, ocular movement intact, sclera clear and no jaundice or redness. Dentition intact. No eye pain. No thrush NECK: no sore throat. LUNGS: normal respiration, clear to auscultation Normal chest wall movement. No chest wall pain. HEART: Regular rate and rhythm. NSR and no ST or T waves changes. EXTREMITY: No edema or cyanosis ABDOMEN: dressings are clean dry and intact. appropriate pain at surgical site. + bowel sounds NEURO: no focal neuro deficits. The patient current medical condition and all orders reviewed with nursing. Patient is stable and doing well postOp and continue routine medical care. See orders. Exam Narrative Exam Narrative: see above Objective Objective Clinical Data: Abnormal lab results 01/04/19 01/04/19 01/04/19 Range/Units 11:13 12:00 12:00 WBC 3.68 L (4.4-10.8) k/cumm Absolute Lymphocytes 0.50 L (1.2-3.4) k/cumm Potassium 3.4 L (3.5-5.1) mmol/L Urine Protein 100 H (Negative) mg/dL Urine Ketones 15 H (Negative) mg/dL Urine Blood Trace-intact H (Negative) Urine Bilirubin Small H (Negative) Urine Urobilinogen 1.0 H (Up TO 0.2) EU/dL Urine RBC 10-20 H (0-2) Vital Signs Temperature 37.0 C 01/04/19 17:40 Temperature Source Temporal Artery Scan 01/04/19 15:02 Pulse 93 H 01/04/19 17:59 Respiratory Rate 25 H 01/04/19 17:59 Respiratory Effort 01/04/19 11:41 Blood Pressure 105/61 01/04/19 17:59 Blood Pressure Mean 80 01/04/19 15:01 Blood Pressure Position Standing 01/04/19 11:30 Pulse Oximetry 98 01/04/19 17:59 Respiratory End-tidal CO2 23 01/04/19 17:50 Oxygen Delivery Method Room Air 01/04/19 17:59 Oxygen Flow Rate 0 01/04/19 17:59 Pain Level 4 01/04/19 15:45 Intake & Output 01/03/19 01/04/19 01/04/19 23:59 11:59 23:59 Intake Total 3050 / 3050 Output Total 75 / 75 Balance 2975 / 2975 Weight 79.832 kg Intake: IV 3050 / 3050 Output: Urine 75 / 75 Other: Urine Color Yellow Urine Appearance Clear Emesis Description None Laboratory Results WBC 3.68 k/cumm (4.4-10.8) L 01/04/19 12:00 RBC 4.27 m/cumm (4.00-5.20) 01/04/19 12:00 Hgb 12.9 g/dL (12.0-15.5) 01/04/19 12:00 Hct 39.2 % (36.0-46.0) 01/04/19 12:00 MCV 91.8 fL (80-95) 01/04/19 12:00 MCH 30.2 pg (27.0-33.0) 01/04/19 12:00 MCHC 32.9 g/dL (32.0-36.0) 01/04/19 12:00 RDW 12.3 % (11.7-14.6) 01/04/19 12:00 Plt Count 209 x1000/uL (130-400) 01/04/19 12:00 MPV 10.0 fL (8.0-11.0) 01/04/19 12:00 Immature Gran % 0.3 01/04/19 12:00 Neutrophils % 78.4 01/04/19 12:00 Lymphocytes % 13.6 01/04/19 12:00 Monocytes % 7.1 01/04/19 12:00 Eosinophils % 0.3 01/04/19 12:00 Basophils % 0.3 01/04/19 12:00 Absolute Neutrophils 2.89 k/cumm (1.2-6.7) 01/04/19 12:00 Absolute Lymphocytes 0.50 k/cumm (1.2-3.4) L 01/04/19 12:00 Absolute Monocytes 0.26 k/cumm (0.11-0.7) 01/04/19 12:00 Absolute Eosinophils 0.01 k/cumm (0.0-0.7) 01/04/19 12:00 Absolute Basophils 0.01 k/cumm (0.0-0.2) 01/04/19 12:00 Sodium 141 mmol/L (136-145) 01/04/19 12:00 Potassium 3.4 mmol/L (3.5-5.1) L 01/04/19 12:00 Chloride 105 mmol/L (98-107) 01/04/19 12:00 Carbon Dioxide 25.1 mmol/L (21.0-32.0) 01/04/19 12:00 Anion Gap 10.9 mmol/L (3-11) 01/04/19 12:00 BUN 9 mg/dL (7-18) 01/04/19 12:00 Creatinine 0.89 mg/dL (0.55-1.02) 01/04/19 12:00 Estimated GFR/1.73 m2 >= 60.00 (mL/min/1.73m2) 01/04/19 12:00 Glucose 93 mg/dL (70-100) 01/04/19 12:00 Calcium 8.6 mg/dL (8.5-10.1) 01/04/19 12:00 Total Bilirubin 0.6 mg/dL (0.2-1.0) 01/04/19 12:00 AST 26 U/L (15-37) 01/04/19 12:00 ALT 51 U/L (12-78) 01/04/19 12:00 Alkaline Phosphatase 68 U/L (46-116) 01/04/19 12:00 Total Protein 7.2 g/dL (6.4-8.2) 01/04/19 12:00 Albumin 3.8 g/dL (3.4-5.0) 01/04/19 12:00 Lipase 74 U/L (73-393) 01/04/19 12:00 Urine Color Dark yellow (Yellow) 01/04/19 11:13 Urine Clarity Clear 01/04/19 11:13 Urine pH 6.0 (5-8) 01/04/19 11:13 Ur Specific [place] 1.025 (1.005-1.025) 01/04/19 11:13 Urine Protein 100 mg/dL (Negative) H 01/04/19 11:13 Urine Ketones 15 mg/dL (Negative) H 01/04/19 11:13 Urine Blood Trace-intact (Negative) H 01/04/19 11:13 Urine Nitrite Negative (Negative) 01/04/19 11:13 Urine Bilirubin Small (Negative) H 01/04/19 11:13 Urine Urobilinogen 1.0 EU/dL (Up TO 0.2) H 01/04/19 11:13 Ur Leukocyte Esterase Negative (Negative) 01/04/19 11:13 Urine RBC 10-20 (0-2) H 01/04/19 11:13 Urine WBC Negative HPF (0-5) 01/04/19 11:13 Ur Epithelial Cells Many HPF (Negative) 01/04/19 11:13 Urine Crystals Negative HPF (Negative) 01/04/19 11:13 Urine Bacteria Few HPF (Negative) 01/04/19 11:13 Urine Casts Negative LPF (Negative) 01/04/19 11:13 Urine Mucus Heavy (Negative) 01/04/19 11:13 Ur Culture Indicated? No 01/04/19 11:13 Urine Glucose Negative mg/dL (Negative) 01/04/19 11:13
[2019-01-04] MEDS: Enoxaparin 40 MG/0.4 ML SYR SC (20:05)
[2019-01-05] MEDS: Ketorolac 30 MG/ML VIAL IVP ×2 (01:50→08:45)
[2019-01-05 03:39] VITALS: BP 100/66; PULSE 73; RESP 16; TEMP 36.6; O2SAT 98
[2019-01-05] MEDS: Normal Saline 1,000 ML 125 ML IV (04:30)
--- NOTE | 2019-01-05 06:54 | PGE_ITS ---
Date of Service Date of service: 01/05/19 Time of Service: 06:51 Assessment and Plan (1) S/P laparoscopic appendectomy: Current visit: Yes Status: Acute A\\ POD #1 s/p Lap. Appi Doing well. P\\ D/C home today. No antibiotics needed Tylenol and advil for pain Follow up in 2 weeks Subjective Interval history since last seen: POD#1 s/p Lap. Appendectomy Doing well this morning. Had a regular dinner without N/V or increased pain. Has only been taking tylenol and Toradol for pain. Feels well. Patient eager to go home. Exam Const General: cooperative and comfortable Orientation: alert and oriented x3 HENMT Head: normocephalic and atraumatic Resp Effort & Inspection: normal respiratory effort GI Inspection: incision (c/d/i) Palpation: soft and nontender Objective Objective Clinical Data: Abnormal lab results 01/04/19 01/04/19 01/04/19 Range/Units 11:13 12:00 12:00 WBC 3.68 L (4.4-10.8) k/cumm Absolute Lymphocytes 0.50 L (1.2-3.4) k/cumm Potassium 3.4 L (3.5-5.1) mmol/L Urine Protein 100 H (Negative) mg/dL Urine Ketones 15 H (Negative) mg/dL Urine Blood Trace-intact H (Negative) Urine Bilirubin Small H (Negative) Urine Urobilinogen 1.0 H (Up TO 0.2) EU/dL Urine RBC 10-20 H (0-2) Vital Signs Temperature 97.9 F 01/05/19 03:39 Temperature Source Tympanic 01/05/19 03:39 Pulse 73 01/05/19 03:39 Pulse Rhythm Regular 01/04/19 23:27 Respiratory Rate 16 01/05/19 03:39 Respiratory Effort Non-Labored 01/04/19 23:27 Respiratory Depth Normal 01/04/19 23:27 Respiratory Pattern Normal 01/04/19 23:27 Blood Pressure 100/66 01/05/19 03:39 Blood Pressure Mean 80 01/04/19 15:01 Blood Pressure Position Standing 01/04/19 11:30 Pulse Oximetry 98 01/05/19 03:39 Respiratory End-tidal CO2 23 01/04/19 17:50 Oxygen Delivery Method Room Air 01/05/19 03:39 Oxygen Flow Rate 0 01/05/19 03:39 Pain Level 6 01/05/19 01:50 Intake & Output 01/04/19 01/04/19 01/05/19 11:59 23:59 11:59 Intake Total 4412.5 / 4412.5 1358.333 / 1358.333 Output Total 675 / 675 800 / 800 Balance 3737.5 / 3737.5 558.333 / 558.333 Weight 175 lb 15.991 oz 182 lb 1.629 oz Intake: IV 4012.5 / 4012.5 908.333 / 908.333 Oral 400 / 400 450 / 450 Output: Urine 675 / 675 800 / 800 Other: Urine Color Yellow Light Gabrielle Urine Appearance Clear Clear Urine Odor Normal Emesis Description None Voiding Methods Toilet Toilet Laboratory Results WBC 3.68 k/cumm (4.4-10.8) L 01/04/19 12:00 RBC 4.27 m/cumm (4.00-5.20) 01/04/19 12:00 Hgb 12.9 g/dL (12.0-15.5) 01/04/19 12:00 Hct 39.2 % (36.0-46.0) 01/04/19 12:00 MCV 91.8 fL (80-95) 01/04/19 12:00 MCH 30.2 pg (27.0-33.0) 01/04/19 12:00 MCHC 32.9 g/dL (32.0-36.0) 01/04/19 12:00 RDW 12.3 % (11.7-14.6) 01/04/19 12:00 Plt Count 209 x1000/uL (130-400) 01/04/19 12:00 MPV 10.0 fL (8.0-11.0) 01/04/19 12:00 Immature Gran % 0.3 01/04/19 12:00 Neutrophils % 78.4 01/04/19 12:00 Lymphocytes % 13.6 01/04/19 12:00 Monocytes % 7.1 01/04/19 12:00 Eosinophils % 0.3 01/04/19 12:00 Basophils % 0.3 01/04/19 12:00 Absolute Neutrophils 2.89 k/cumm (1.2-6.7) 01/04/19 12:00 Absolute Lymphocytes 0.50 k/cumm (1.2-3.4) L 01/04/19 12:00 Absolute Monocytes 0.26 k/cumm (0.11-0.7) 01/04/19 12:00 Absolute Eosinophils 0.01 k/cumm (0.0-0.7) 01/04/19 12:00 Absolute Basophils 0.01 k/cumm (0.0-0.2) 01/04/19 12:00 Sodium 141 mmol/L (136-145) 01/04/19 12:00 Potassium 3.4 mmol/L (3.5-5.1) L 01/04/19 12:00 Chloride 105 mmol/L (98-107) 01/04/19 12:00 Carbon Dioxide 25.1 mmol/L (21.0-32.0) 01/04/19 12:00 Anion Gap 10.9 mmol/L (3-11) 01/04/19 12:00 BUN 9 mg/dL (7-18) 01/04/19 12:00 Creatinine 0.89 mg/dL (0.55-1.02) 01/04/19 12:00 Estimated GFR/1.73 m2 >= 60.00 (mL/min/1.73m2) 01/04/19 12:00 Glucose 93 mg/dL (70-100) 01/04/19 12:00 Calcium 8.6 mg/dL (8.5-10.1) 01/04/19 12:00 Total Bilirubin 0.6 mg/dL (0.2-1.0) 01/04/19 12:00 AST 26 U/L (15-37) 01/04/19 12:00 ALT 51 U/L (12-78) 01/04/19 12:00 Alkaline Phosphatase 68 U/L (46-116) 01/04/19 12:00 Total Protein 7.2 g/dL (6.4-8.2) 01/04/19 12:00 Albumin 3.8 g/dL (3.4-5.0) 01/04/19 12:00 Lipase 74 U/L (73-393) 01/04/19 12:00 Urine Color Dark yellow (Yellow) 01/04/19 11:13 Urine Clarity Clear 01/04/19 11:13 Urine pH 6.0 (5-8) 01/04/19 11:13 Ur Specific [place] 1.025 (1.005-1.025) 01/04/19 11:13 Urine Protein 100 mg/dL (Negative) H 01/04/19 11:13 Urine Ketones 15 mg/dL (Negative) H 01/04/19 11:13 Urine Blood Trace-intact (Negative) H 01/04/19 11:13 Urine Nitrite Negative (Negative) 01/04/19 11:13 Urine Bilirubin Small (Negative) H 01/04/19 11:13 Urine Urobilinogen 1.0 EU/dL (Up TO 0.2) H 01/04/19 11:13 Ur Leukocyte Esterase Negative (Negative) 01/04/19 11:13 Urine RBC 10-20 (0-2) H 01/04/19 11:13 Urine WBC Negative HPF (0-5) 01/04/19 11:13 Ur Epithelial Cells Many HPF (Negative) 01/04/19 11:13 Urine Crystals Negative HPF (Negative) 01/04/19 11:13 Urine Bacteria Few HPF (Negative) 01/04/19 11:13 Urine Casts Negative LPF (Negative) 01/04/19 11:13 Urine Mucus Heavy (Negative) 01/04/19 11:13 Ur Culture Indicated? No 01/04/19 11:13 Urine Glucose Negative mg/dL (Negative) 01/04/19 11:13
--- NOTE | 2019-01-05 06:55 | W.PM.DS.N ---
Date of service: 01/05/19 Time of Service: 06:55 DS: Diagnosis Discharge Diagnosis (1) S/P laparoscopic appendectomy: Status: Acute Discharge Plan Disposition Patient Disposition: HOME Condition: Improving Discharge Details Reason For Visit: APPENDICITIS Admit Date/Time: 01/04/19 17:22 Admit Provider: Shellie Escalante Attending Provider: Shellie Escalante Primary Care Provider: None,None Hospital Course Hospital Course: Mrs. Powers is a pleasant 38-year-old female that came to the emergency department yesterday because she had not been feeling well and was having right lower quadrant pain. CT scan was done in the emergency department which showed acute appendicitis. Patient underwent an uncomplicated laparoscopic appendectomy. She was started on clear liquids and advance to regular diet by dinner time. She was able to tolerate the regular diet without nausea ,vomiting or increased abdominal pain. This morning the patient is doing well. She has not had any increase in pain. She does not have any nausea or vomiting. She has only taken Tylenol and Toradol for pain. Home Meds and New Rx's Prescriptions: New acetaminophen [Mapap Extra Strength] 500 mg Tablet 500 - 1,000 mg PO Q6H PRN PRNQty: 30 RF: 0 Continued famotidine [Acid Trouble Dispatcher (famotidine)] 20 mg tablet 20 mg PO BID Qty: 60 RF: 2 multivitamin Capsule 1 cap PO DAILY RF: 0 Changed naproxen sodium [Aleve] 220 mg Capsule 440 mg PO TID Qty: 0 RF: 0 Discharge Instructions Instructions: Laparoscopic Appendectomy (DC) Additional Instructions: Activity at Home after surgery: 1. Make sure you walk outside at least 4 times per day 2. You should be able to climb a flight of stairs 3. No driving while in pain or taking pain medications 4. No strenuous activity or heavy lifting for 2 weeks (laparoscopic surgery) Diet, Nutrition, & wound healin. Avoid alcohol until after you are recovered from your surgery 2. Make sure to eat plenty of lean protein (meat, fish, eggs, cottage cheese, beans) 3. Eat a variety of fruits and vegetables. Eat plenty of high fiber foods to avoid constipation. 4. Drink plenty of liquids to stay hydrated and avoid constipation Pain Medications: 1. Alternate Tylenol 1000 mg and Naproxen 440 mg every 3 hours For Constipation: 1. Take Milk of Magnesia or MiraLax as needed for constipation Other: 1. You may shower daily. Do not scrub the incisions 2. Do not soak the incisions for 1 week 3. You may alternate ice and heat as needed for pain and swelling Wound Care: 1. Keep the incisions clean and dry Please call our office if you develop: 1. Fevers >101.5 2. Nausea or Vomiting 3. Worsening pain 4. Redness and thick discharge from the wounds If after hours please call the Hospital at and ask to speak to the on-call surgeon Referrals: Shellie Escalante DO [OSTEOPATHIC DOCTOR] - (or Dr. Barcenas in 2 weeks) Activity:: No lifting, pulling or pushing >20 lb x 2 weeks Equipment/Supplies:: No Equipment Needed Diet:: As Tolerated Exam Const General: cooperative and comfortable Orientation: alert and oriented x3 HENMT Head: normocephalic and atraumatic Resp Effort & Inspection: normal respiratory effort Auscultation: clear to auscultation bilaterally Cardio Rate: regular rate Rhythm: regular rhythm GI Inspection: incision (c/d/i) Palpation: nontender Auscultation: normal bowel sounds DS: Data Vitals/I&O Vitals and I&O: Vital Signs Temperature 97.9 F 01/05/19 03:39 Temperature Source Tympanic 01/05/19 03:39 Pulse 73 01/05/19 03:39 Pulse Rhythm Regular 01/04/19 23:27 Respiratory Rate 16 01/05/19 03:39 Respiratory Effort Non-Labored 01/04/19 23:27 Respiratory Depth Normal 01/04/19 23:27 Respiratory Pattern Normal 01/04/19 23:27 Blood Pressure 100/66 01/05/19 03:39 Blood Pressure Mean 80 01/04/19 15:01 Blood Pressure Position Standing 01/04/19 11:30 Pulse Oximetry 98 01/05/19 03:39 Respiratory End-tidal CO2 23 01/04/19 17:50 Oxygen Delivery Method Room Air 01/05/19 03:39 Oxygen Flow Rate 0 01/05/19 03:39 Pain Level 6 01/05/19 01:50 Intake & Output 01/04/19 01/04/1901/05/19 11:59 23:59 11:59 Intake Total 4412.5 / 4412.5 1358.333 / 1358.333 Output Total 675 / 675 800 / 800 Balance 3737.5 / 3737.5 558.333 / 558.333 Weight 175 lb 15.991 oz 182 lb 1.629 oz Intake: IV 4012.5 / 4012.5 908.333 / 908.333 Oral 400 / 400 450 / 450 Output: Urine 675 / 675 800 / 800 Other: Urine Color Yellow Light Gabrielle Urine Appearance Clear Clear Urine Odor Normal Emesis Description None Voiding Methods Toilet Toilet Labs on day of discharge: Labs from last 24 hours 01/04/19 01/04/19 01/04/19 12:00 12:00 11:13 WBC 3.68 L RBC 4.27 Hgb 12.9 Hct 39.2 MCV 91.8 MCH 30.2 MCHC 32.9 RDW 12.3 Plt Count 209 MPV 10.0 Immature Gran % 0.3 Neutrophils % 78.4 Lymphocytes % 13.6 Monocytes % 7.1 Eosinophils % 0.3 Basophils % 0.3 Absolute Neutrophils 2.89 Absolute Lymphocytes 0.50 L Absolute Monocytes 0.26 Absolute Eosinophils 0.01 Absolute Basophils 0.01 Sodium 141 Potassium 3.4 L Chloride 105 Carbon Dioxide 25.1 Anion Gap 10.9 BUN 9 Creatinine 0.89 Estimated GFR/1.73 m2 >= 60.00 Glucose 93 Calcium 8.6 Total Bilirubin 0.6 AST 26 ALT 51 Alkaline Phosphatase 68 Total Protein 7.2 Albumin 3.8 Lipase 74 Urine Color Dark yellow Urine Clarity Clear Urine pH 6.0 Ur Specific [place] 1.025 Urine Protein 100 H Urine Ketones 15 H Urine Blood Trace-intact H Urine Nitrite Negative Urine Bilirubin Small H Urine Urobilinogen 1.0 H Ur Leukocyte Esterase Negative Urine RBC 10-20 H Urine WBC Negative Ur Epithelial Cells Many Urine Crystals Negative Urine Bacteria Few Urine Casts Negative Urine Mucus Heavy Ur Culture Indicated? No Urine Glucose Negative [facility] Medical History Acute appendicitis (Acute) GERD (gastroesophageal reflux disease) (Chronic) Elderly multigravida in first trimester (Acute) Asthma (Chronic) Frequent UTI (Chronic) Osteopenia (Chronic) Surgical History S/P laparoscopic appendectomy (Acute ~01/04/19) H/O bilateral salpingectomy (Acute) Augmentation mammoplasty (Resolved) section (Resolved 04/07/09) Reduction mammoplasty (Resolved) Family History Grandfather Heart disease Myocardial infarction Grandfather Heart disease Myocardial infarction Stroke Social History Smoking/Tobacco Use Status: Never Alcohol Intake: current Alcohol Intake frequency: holidays/special occasions only Drug use: Never Substance use type: does not use Household members: significant other, children and other Details: BF - Huseyin, 10/2018 S -Venkatesh. 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 Date GA/Weeks # Outcome Route Wgt Sex Labor Lgth Anesthesia Location Prov Complic 07/18/07 38 No Successful 6 lb 1 oz Male 26 hrs iol for p/e on mgso4 after 26 hrs w/o sig. progress therefore did 1` formerly [facility] 04/07/09 37 Yes Successful 5 lb 10 oz Female cuong c/s [facility] 04/07/09 37 Yes Successful 4 lb 15 oz Female repeat c/s [facility] 10/21/18 No Successful 5 lb 15 oz Male Aaron Ro Delivery Date: 10/21/18 No notes to display Delivery Date: 04/07/09 On 08/08/18 @ 10:57 NEDA WALDRON 2nd twin Delivery Date: 04/07/09 On 08/08/18 @ 10:55 NEDA WALDRON twin gestation w/o complications Delivery Date: 07/18/07 On 08/08/18 @ 10:53 NEDA WALDRON uncomplicated 1` c/s.
[2019-01-05] MEDS: Acetaminophen 500 MG TAB PO (06:59)
[2019-01-05 07:30] VITALS: BP 110/73; PULSE 61; RESP 16; TEMP 36.5; O2SAT 98
--- NOTE | 2019-01-05 08:15 | PDOC.CMIN ---
- If Service Date Differs Date of service: 01/05/19 Time of Service: 08:15 Care Management Initial Assess REASON FOR HOSPITALIZATION:: Appendicitis PAST MEDICAL HISTORY/PAST SURGICAL HISTORY:: Medical History: Acute appendicitis (Acute). GERD (gastroesophageal reflux disease) (Chronic). Elderly multigravida in first trimester (Acute). Asthma (Chronic). Frequent UTI (Chronic). Osteopenia (Chronic). Surgical History: H/O bilateral salpingectomy (Acute). Augmentation mammoplasty (Resolved). section (Resolved 04/07/09). Reduction mammoplasty (Resolved) PREVIOUS FUNCTIONAL STATUS/SOCIAL/FAMILY SUPPORTS:: Cece was discharged before CM able to meet with her. Chart review done by CM and confirmed that follow up appointment scheduled with Dr. Escalante on January,. ADVANCE DIRECTIVES:: None on file at [facility] Has patient been provided with information about the portal?: No Did the patient sign up for the portal?: No CODE STATUS:: Full Code INSURANCE COVERAGE / FINANCIAL ISSUES:: Medicaid Vt PRIMARY CARE PHYSICIAN:: None PATIENT/FAMILY EDUCATION NEEDS:: Discharge plan, limitaations, follow up plan of care, Ask Me Three. TRANSPORTATION:: Via private automobole with family/friend. PLAN:: Cece will be discharged home with no services. She will follow up with her surgeon and the discharge plan of care.
[2019-01-05] MEDS: Normal Saline Flush 10 ML SYR IVP (08:46)
--- NOTE | 2019-01-05 09:49 | INITIAL_ITS ---
- If Service Date Differs Date of service: 01/05/19 Time of Service: 08:15 Care Management Initial Assess REASON FOR HOSPITALIZATION:: Appendicitis PAST MEDICAL HISTORY/PAST SURGICAL HISTORY:: Medical History: Acute appendicitis (Acute). GERD (gastroesophageal reflux disease) (Chronic). Elderly multigravida in first trimester (Acute). Asthma (Chronic). Frequent UTI (Chronic). Osteopenia (Chronic). Surgical History: H/O bilateral salpingectomy (Acute). Augmentation mammoplasty (Resolved). section (Resolved 04/07/09). Reduction mammoplasty (Resolved) PREVIOUS FUNCTIONAL STATUS/SOCIAL/FAMILY SUPPORTS:: Cece was discharged before CM able to meet with her. Chart review done by CM and confirmed that follow up appointment scheduled with Dr. Escalante on January,. ADVANCE DIRECTIVES:: None on file at [facility] Has patient been provided with information about the portal?: No Did the patient sign up for the portal?: No CODE STATUS:: Full Code INSURANCE COVERAGE / FINANCIAL ISSUES:: Medicaid Vt PRIMARY CARE PHYSICIAN:: None PATIENT/FAMILY EDUCATION NEEDS:: Discharge plan, limitaations, follow up plan of care, Ask Me Three. TRANSPORTATION:: Via private automobole with family/friend. PLAN:: Cece will be discharged home with no services. She will follow up with her surgeon and the discharge plan of care.
== END 2019-01-05 09:40 | disposition home or self-care (01) ==
LOC: ER 11:50 → SUR 15:19 → MS 17:31
PROVIDERS: Admitting Provider Surgery; Emergency Provider Nurse Practitioner Family; Visit Provider Surgery
PROC: 0DTJ4ZZ Resection of Appendix, Percutaneous Endoscopic Approach (ICD-10-PCS; CPT 44970; principal; 2019-01-04 15:20)
DX: K35.32 Acute appendicitis with perforation, localized peritonitis, and gangrene, without abscess (principal); L50.0 Allergic urticaria; T50.8X5A Adverse effect of diagnostic agents, initial encounter; Y92.238 Other place in hospital as the place of occurrence of the external cause; K21.9 Gastro-esophageal reflux disease without esophagitis; Z98.890 Other specified postprocedural states
CPT/HCPCS: 44970; 36415; 51702; 80053; 83690; 96361; 96365; 96367; 96375; 99223; 99285; J1650; NC; 74177; 81003; 81015; 85025; 88304; 99284; G0378; J0131; J1100; J1200; J1885; J2250; J2405; J2930; J3010; J3490

== ENCOUNTER 2020-10-27 14:26 | Outpatient (REF) | payer MEDICAID, SELFPAY ==
--- NOTE | 2020-10-27 13:45 | PAPFT_PTH ---
PATIENT: NOMI KELLEY LOC: [facility] U#:[id number] AGE/SX: 40/F ROOM: RE10/27/[address]: Betsey Marrero : 1980 BED: DIS: 10/27/2020 SPEC #: [id number] RECD: 10/27/20 17:36 STATUS: LILA RELynn #: [id number] ALMA: 10/27/20 13:[address]: Betsey Marrero DEPT: [facility] Cytology RECD BY: Ivette Keller ENTERED: 10/27/20 17:36 SP TYPE: PAPFT JANNETTE DR: None Tissues: 1 - CX/ENDOCX FOR PAP SMEARS Procedures: PAP THIN PREP/[facility] Screening HPV DNA PROBE Comments: [id number]
== END 2020-10-27 14:27 | disposition home or self-care (01) ==
LOC: LBN 14:26
PROVIDERS: Visit Provider Obstetrics & Gynecology Gynecology
DX: R30.0 Dysuria (principal); Z12.4 Encounter for screening for malignant neoplasm of cervix; Z11.51 Encounter for screening for human papillomavirus (HPV)
CPT/HCPCS: 88142; 87086; 87624